=== PATIENT | female | born 1975 | race African-American/Black ===

== ENCOUNTER 2016-11-24 19:30 | Emergency (ER) | payer OTHER ==
[~2016-11-24] VITALS: Ht 162.6 cm; Wt 96.6 kg
[~2016-11-24 19:30] MED LIST: ACULAR 0.5%5 ML OS; BACTRIM DS 8001 TAB PO; HYDRODIURIL 112.5 M1 PO; LISINOPRIL10 MG PO; PERCOCET 5-3251 EACH PO; TRAMADOL50 MG PO; ZOFRAN ODT4 M1 SL
--- NOTE | 2016-11-24 21:40 | ED GENERAL ADULT ---
History of Present Illness General Chief Complaint: General Adult Stated Complaint: "TOOK SERENITY ASPRIN, HAVING SHOCKS, SHAKING" Source: patient Exam Limitations: no limitations Vital Signs & Intake/Output Vital Signs & Intake/Output Vital Signs Date Time Temp Pulse Resp B/P Pulse O2 O2 Flow FiO2 Ox Delivery Rate 11/24 2157 98.0 80 16 136/80 98 Room Air 11/24 2118 Room Air 11/24 1940 97.7 78 18 141/83 98 Room Air Allergies Coded Allergies: NO KNOWN ALLERGIES (11/24/16) Reconcile Medications Butalb/Acetaminophen/Caffeine (Fioricet 50-300-40 MG Capsule) 50 MG-300 MG-40 MG CAPSULE 1 TAB PO TID PRN HEADACHE Ketorolac Tromethamine 10 MG TABLET 1 TAB PO TID PRN HEADACHE RECEIVED im IN THE er Ondansetron HCl (Zofran) 4 MG TABLET 1 TAB PO Q6-8P PRN NAUSEA Triage Note: TRIAGE: PT TO ER WITH BOYFRIEND C/C HEADACHE PAIN SINCE 11 AM, WORSE IN LAST HOUR. TOOK ASA 81 MG X 2 TABS WITH NO RELIEF. PT STATES "THEY MADE ME COME HERE". BOYFRIEND STATES SHE "STARTED COMPLAINING OF NOT FEELING GOOD. LAY DOWN, DOZED OFF AND STARTED TO SHAKE A LITTLE BIT SO I WOKE HER UP, GOT HER DRESSED AND BROUGHT HER HERE". BOYFRIEND STATES "SHE'S BEEN OVER-EXERTING HERSELF, NOT GETTING ENOUGH SLEEP AND TAKING TOO MANY ENERGY DRINKS". STATES SHE HAD SECOND EPISODE OF SHAKING BUT SHE WAS "LESS COHERENT" DURING IT. HE STATES THEY ONLY SEEM TO HAPPEN WHEN SHE STARTS TO FALL ASLEEP AND THEY LAST "PROBABLY A SECOND BECAUSE I JUST INSTANTLY WAKE HER UP". Triage Nurses Notes Reviewed? yes Onset: Gradual Duration: constant Injury Environment: home Severity: severe Severity Numbers: 8 : No Patient currently breastfeeds: No HPI: Patient is a 41-year-old female with a chief complaint of a one-month history of intermittent headaches however patient does not have a significant history of migraines. Patient states that today a gradual onset of headache and had occurred in which currently she complains of 8 out of 10 frontal and temporal bandlike pressure. Patient has mild nausea however can tolerate by mouth. Has positive for photophobia and chills. Denies any neck pain neck stiffness fever chills vomiting or thunderclap headache or worst headache of life. Patient took to bear aspirins earlier today without relief of symptoms. Past History Travel History Traveled to [place] past 21 day No Medical History Any Pertinent Medical History? see below for history Neurological: NONE EENT: NONE Cardiovascular: hypertension Respiratory: NONE Gastrointestinal: NONE Hepatic: NONE Renal: NONE Musculoskeletal: NONE Psychiatric: NONE Endocrine: NONE Blood Disorders: NONE Cancer(s): NONE PHYSICAL CHEMIST/Reproductive: +pap smear no f/u History of MRSA: No History of VRE: No History of CDIFF: No Surgical History Surgical History: non-contributory, N Psychosocial History Who do you live with Family What is your primary language Colombian Tobacco Use: Current Daily Use Daily Tobacco Use Amount/Type: => 5 Cigarettes daily ETOH Use: denies use Illicit Drug Use: denies illicit drug use Family History Hx Contributory? No Review of Systems Review of Systems Constitutional: Reports: no symptoms. EENTM: Reports: see HPI. Respiratory: Reports: no symptoms. Cardiovascular: Reports: no symptoms. GI: Reports: no symptoms, nausea. Genitourinary: Reports: no symptoms. Musculoskeletal: Reports: no symptoms. Skin: Reports: no symptoms. Neurological/Psychological: Reports: see HPI, headache. Hematologic/Endocrine: Reports: no symptoms. Immunologic/Allergic: Reports: no symptoms. All Other Systems: Reviewed and Negative Physical Exam Physical Exam General Appearance: no apparent distress, alert Comments: Well-developed well-nourished person in no acute distress HEENT: Normal EENT exam, extraocular motion intact, no nystagmus. Pupils equally round and reactive to light and accommodation. Nose is atraumatic. External auditory canal and Tympanic membranes clear. Pharynx normal. No swelling or edema. Neck: Supple, no lymphadenopathy, normal range of motion without pain or tenderness Back: Nontender, no CVA tenderness. Cardiovascular: Regular rate and rhythms no murmurs rubs or gallops, normal JVP Respiratory: Chest nontender. No respiratory distress.breath sounds clear to auscultation bilaterally Abdomen: Soft, nontender nondistended, no appreciable organomegaly. Normal bowel sounds. No ascites Extremity: No edema, no calf tenderness to palpation, normal and equal pulses. Neuro: Alert oriented x3, motor sensory normal, cranial nerves II through XII grossly intact. Skin: No appreciable rash on exposed skin, skin is warm and dry. Psych: Mood and affect is normal, memory and judgment is normal. Core Measures ACS in differential dx? No CVA/TIA Diagnosis: No Severe Sepsis Present: No Septic Shock Present: No Progress Differential Diagnoses I considered the following diagnoses in my evaluation of the patient: [ Meningitis, migraine, headache, cluster headache, idiopathic intracranial hypertension, brain aneurysm, cancer subarachnoid hemorrhage] Plan of Care: Current Medications Sig/Nilam Start time Last Medication Dose Stop Time Status Admin Ketorolac 30 MG ONCE ONE 11/24 2199 UNVr Tromethamine 11/24 2200 (Toradol) Ondansetron HCl 4 MG ONCE ONE 11/24 2199 UNVr (Zofran) 11/24 2200 Patient on exam was in no apparent distress denies any thunderclap headache or acute onset or severe headache concerns and which my suspicion of subarachnoid hemorrhages significantly low. Patient was able tolerate by mouth discharge and patient had unremarkable physical exam findings (NAKUL LILLY,ANGELITO) Initial ED EKG: none Departure Departure Disposition: HOME OR SELF CARE Condition: Stable Clinical Impression Primary Impression: Migraine Referrals: MARTA MIX APRN (PCP/Family) Additional Instructions: As discussed begin drinking plain water for hydration. Begin the prescription at ketorolac for headaches. Begin the prescription of Zofran for future nausea and begin the prescription of Fioricet for breakthrough headache relief. If headache still continued next week follow-up with neurologist Dr. BARR. If symptoms worsen return to emergency room. Prescriptions are waiting at [facility] pharmacy Departure Forms: Customer Survey General Discharge Information Prescriptions: Current Visit Scripts Ketorolac Tromethamine 1 TAB PO TID PRN HEADACHE #15 TAB RECEIVED im IN THE er Butalb/Acetaminophen/Caffeine (Fioricet 50-300-40 MG Capsule) 1 TAB PO TID PRN HEADACHE #15 TAB Ondansetron HCl (Zofran) 1 TAB PO Q6-8P PRN NAUSEA #10 TAB Critical Care Note Critical Care Note Critical Care Time: non-applicable
[2016-11-24] MEDS ORDERED: FIORICET 50-301 EACH PO (21:49)
[2016-11-24] MEDS ORDERED: KETOROLAC TROME10 M1 PO (21:49)
[2016-11-24] MEDS ORDERED: ZOFRAN4 M2 PO (21:49)
[2016-11-24 21:58] VITALS: BP 136/80
== END 2016-11-24 22:04 ==
LOC: ERH 19:30
DX: G43.909 Migraine, unspecified, not intractable, without status migrainosus (principal)
CPT/HCPCS: 96372; J1885; J3101